=== PATIENT | male | born 1990 | race Caucasian/White ===

== ENCOUNTER 2017-04-18 20:59 | Emergency (ER) | payer MEDICAID, OTHER ==
[~2017-04-18] VITALS: Ht 170.2 cm; Wt 80.5 kg
[2017-04-18 21:21] VITALS: Ht 170.2 cm; Wt 80.5 kg
[2017-04-19] MEDS ORDERED: IBUP-1542 PO (00:10)
[2017-04-19] MEDS ORDERED: CLIN-73 PO (00:10)
== END 2017-04-18 22:36 | disposition left against medical advice (07) ==
LOC: FTE 20:59
DX: Z53.21 Procedure and treatment not carried out due to patient leaving prior to being seen by health care provider (principal)

== ENCOUNTER 2017-04-18 22:48 | Emergency (ER) | payer OTHER ==
[~2017-04-18] VITALS: Ht 162.6 cm; Wt 80.5 kg
[2017-04-18 22:51] VITALS: Ht 162.6 cm; Wt 80.5 kg
[2017-04-19] MEDS ORDERED: CLIN-73 PO (00:10)
[2017-04-19] MEDS ORDERED: IBUP-1542 PO (00:10)
[2017-04-19] MEDS ORDERED: CLINDAMYCIN 900 MG/D5W (PMX) 50 ML IVPB ONE (00:30)
[2017-04-19] MEDS ORDERED: LIDOCAINE 1% (MDV) 20 ML INJ SC ONE (00:30)
--- NOTE | 2017-04-19 00:46 | ERD ---
ER Documentation Chief Complaint Date/Time DATE: 04/19/17 TIME: 00:42 Chief Complaint abscess left shoulder HPI 26-year-old male with history of IV drug abuse and heroin use presents emergency department with axis of the left shoulder about 4-5 days ago. He describes pain, associated with swelling and redness. Patient states that he did not use IV drugs in this case, however he has a history of multiple abscesses admission for this. He denies any fevers or chills. ROS All systems reviewed and are negative except as per history of present illness. Medications Home Meds Active Scripts Ibuprofen* (Motrin*) 600 Mg Tab, 600 MG PO Q6, #30 TAB Prov:SEN NIELSEN PA-C 04/19/17 Clindamycin Hcl* (Clindamycin Hcl*) 300 Mg Capsule, 300 MG PO TID for 10 Days, CAP Prov:SEN NIELSEN PA-C 04/19/17 Allergies Allergies: Coded Allergies: No Known Allergy (Unverified , 02/21/12) PMhx/Soc Medical and Surgical Hx: pt denies Medical Hx, pt denies Surgical Hx History of Surgery: No Anesthesia Reaction: No Hx Neurological Disorder: No Hx Respiratory Disorders: No Hx Cardiac Disorders: No Hx Psychiatric Problems: No Hx Miscellaneous Medical Probl: No Hx Alcohol Use: Yes (EVERYDAY) Hx Substance Use: Yes (MARIJUANA) Hx Tobacco Use: Yes (1 PACK A DAY) Smoking Status: Current every day smoker Physical Exam Vitals Vital Signs Date Time Temp Pulse Resp B/P Pulse Ox O2 Delivery O2 Flow Rate FiO2 04/18/17 22:51 98.2 101 20 146/77 98 Physical Exam General: Well-developed, well-nourished. The patient appears in no acute distress. HEENT: Head is normocephalic, atraumatic. No scleral icterus. Neck: Supple. Nontender. Lungs: Clear to auscultation. Normal air movement. Heart: Regular rate and rhythm. S1 and S2 are normal. No murmurs, gallops, or rubs. Abdomen: Soft, nontender, nondistended. Bowel sounds are normoactive. Extremities: Patient has full range of motion of the left shoulder, as well as the elbow. Compartments are soft Neurologic: Alert and oriented 3. No focal deficits. Skin: Abscess on the left shoulder, there is fluctuance of approximately 3 cm, there is cellulitis on the left shoulder and left upper extremity. Results 24 hrs Current Medications Medications (Trade) Dose Ordered Sig/Becky Route PRN Reason Start Time Stop Time Status Last Admin Dose Admin Lidocaine 20 ml 20 ml ONCE ONCE SC 04/19/17 00:30 04/19/17 00:31 DC Clindamycin HCl/ Dextrose (Cleocin 900 Mg/ D5W (Pmx)) 50 ml @ 50 mls/hr ONCE ONCE IVPB 04/19/17 00:30 04/19/17 00:40 DC Clindamycin Phosphate (Cleocin) 900 mg ONCE ONCE IM 04/19/17 01:00 04/19/17 01:01 Procedures/MDM ED course: Abscess Incision and Drainage with irrigation by me: Patient was verbally consented Location: Left shoulder Anesthesia: Local 1% Lidocaine Technique: Irrigated. Disrupted loculations w/ instrumentation Packing: None Complications: Neurovascularly intact post procedure 48 hour wound check. Scar minimization instructions given. Patient's skin symptoms have stabilized while they have been evaluated in the department and are appropriate for outpatient care and work up. Exam and w/u not consistent w/ sepsis, deep space infection, or foreign body. Medical decision making: This 26-year-old male presents with an abscess on the left shoulder, patient has a history of lengthy intravenous drug abuse with heroin, states he does not use any IV needles at this time for this abscess. There is cellulitis that is significant, however no signs of DVT, compartment syndrome, or any limb threatening process. He was evaluated at bedside with my attending physician Dr. Crockett who agrees that he is stable for discharge, to be discharged with p.o. clindamycin. He was given a dose of clindamycin, and was advised to recheck in 2 days. Departure Diagnosis: Primary Impression: Abscess Additional Impression: Encounter for incision and drainage procedure Condition: Good Patient Instructions: Abscess, Incision And Drainage Additional Instructions: Follow up in 2 days in your clinic for wound check. SEN NIELSEN PA-C Apr 19, 2017 00:46
[2017-04-19] MEDS ORDERED: CLINDAMYCIN 900 MG INJ IM ONE (01:00)
== END 2017-04-19 01:07 | disposition left against medical advice (07) ==
LOC: FTE 22:48
DX: L02.413 Cutaneous abscess of right upper limb (principal); F17.210 Nicotine dependence, cigarettes, uncomplicated